=== PATIENT | female | born 1965 | race Caucasian/White ===

== ENCOUNTER 2020-03-06 21:08 | Emergency (ER) | payer BC ==
[2020-03-06] MEDS ORDERED: SODIUM CHLORIDE 0.9% 500 ML 500 ML IV STA (21:51)
--- NOTE | 2020-03-06 22:07 | ED ---
General Adult HPI - General Source: patient, RN notes reviewed Mode of arrival: ambulatory Limitations: no limitations <Diony Kendall - Last Filed: 03/06/20 23:04> <Gisela Hedrick - Last Filed: 03/07/20 15:43> - General Chief complaint: Urogenital Stated complaint: Blood in Urine Time Seen by Provider: 03/06/20 21:37 - History of Present Illness Initial comments: 54-year-old female with a past medical history of osteopenia % the emergency department for "blood in urine." Patient reports that today she started to have some slight blood in her urine. States it was at first tinged pink. States now she has passed some clots. She denies difficulty urinating. She notices some mild cramping abdominal pain but denies any back pain or severe abdominal pain. Patient does admit to some mild burning with urination.Patient has no other complaints at this time including shortness of breath, chest pain, nausea or vomiting, headache, or visual changes. (Diony Kendall) - Related Data Home Medications Medication Instructions Recorded Confirmed Cholecalciferol [Vitamin D3 (25 3,000 unit PO DAILY 03/06/20 03/06/20 Mcg = 1000 Iu)] Citrical 2 tab PO DAILY 03/06/20 03/06/20 Collagen Powder 1 scoop PO DAILY 03/06/20 03/06/20 Hydrochlorothiazide 12.5 mg PO DAILY 03/06/20 03/06/20 [hydroCHLOROthiazide] Magnesium(Unknown Dose) 1 tab PO DAILY 03/06/20 03/06/20 Multivit-Min/FA/Lycopen/Lutein 1 tab PO DAILY 03/06/20 03/06/20 [Centrum Silver Tablet] Omeprazole 20 mg PO DAILY 03/06/20 03/06/20 Potassium Chloride 10 meq PO BID 03/06/20 03/06/20 Turmeric(Unknown Dose) 1 tab PO DAILY 03/06/20 03/06/20 Previous Rx's Medication Instructions Recorded Cephalexin [Keflex] 500 mg PO Q6HR 10 Days #40 cap 03/06/20 Allergies Allergy/AdvReac Type Severity Reaction Status Date / Time No Known Allergies Allergy Verified 03/06/20 22:39 Review of Systems ROS Other: All systems not noted in ROS Statement are negative. <Diony Kendall P - Last Filed: 03/06/20 23:04> ROS Other: All systems not noted in ROS Statement are negative. <Gisela Hedrick Nadia - Last Filed: 03/07/20 15:43> ROS Statement: Those systems with pertinent positive or pertinent negative responses have been documented in the HPI. Past Medical History Additional Past Medical History / Comment(s): Osteopena History of Any Multi-Drug Resistant Organisms: None Reported Past Surgical History: Orthopedic Surgery Smoking Status: Never smoker Past Alcohol Use History: None Reported Past Drug Use History: None Reported <Diony Kendall - Last Filed: 03/06/20 23:04> General Exam Limitations: no limitations General appearance: alert, in no apparent distress Head exam: Present: atraumatic, normocephalic, normal inspection Eye exam: Present: normal appearance, PERRL, EOMI. Absent: scleral icterus, conjunctival injection, periorbital swelling ENT exam: Present: normal exam, mucous membranes moist Neck exam: Present: normal inspection, full ROM. Absent: tenderness, meningismus, lymphadenopathy Respiratory exam: Present: normal lung sounds bilaterally. Absent: respiratory distress, wheezes, rales, rhonchi, stridor Cardiovascular Exam: Present: regular rate, normal rhythm, normal heart sounds. Absent: bradycardia, tachycardia, irregular rhythm GI/Abdominal exam: Present: soft, normal bowel sounds. Absent: distended, tenderness, guarding, rebound, rigid External exam: Present: normal external exam. Absent: erythema, swelling, lesions, lacerations, ecchymosis Back exam: Absent: CVA tenderness (R), CVA tenderness (L) <Diony Kendall - Last Filed: 03/06/20 23:04> Course Vital Signs 03/06/20 03/06/20 03/06/20 21:20 22:08 23:21 Temperature 98.6 F 98.4 F Pulse Rate 100 89 79 Respiratory 18 14 16 Rate Blood Pressure 173/97 153/82 137/80 O2 Sat by Pulse 100 98 97 Oximetry Medical Decision Making - Lab Data Result diagrams: 03/06/20 21:59 03/06/20 21:59 <Diony Kendall P - Last Filed: 03/06/20 23:04> - Lab Data Result diagrams: 03/06/20 21:59 03/06/20 21:59 <Gisela Herdick - Last Filed: 03/07/20 15:43> - Medical Decision Making HPI and physical exam as document. Vitals are stable. No abdominal or CVA tenderness. CBC does show mild acidosis with a left shift. CMP does show e vidence of dehydration, patient was given fluids. Urinalysis shows evidence of infection with 182 red and white blood cells. Many bacteria. Patient will be treated with Rocephin pending culture. She will follow-up with her doctor who is out of town. Patient is going back home to [place] tomorrow. She'll return here for any worsening symptoms overnight including difficulty urinating. (Diony Kendall) I was available for consultation in the emergency department. The history and physical exam were done by the midlevel provider. I was consulted for this patients care. I reviewed the case with the midlevel provider and based on their presentation of the patient, I agree with the assessment, medical decision making and plan of care as documented. Chart was dictated using Gauzy dictation software. Attempts were made to correct any dictation errors however some typographical errors may persist. Patient was seen during a national state of emergency due to the Covid-19 pandemic. (Gisela Hedrick) - Lab Data Lab Results 03/06/20 03/06/20 03/06/20 Range/Units 21:59 21:59 21:59 WBC 13.0 H (3.8-10.6) k/uL RBC 3.94 (3.80-5.40) m/uL Hgb 12.4 (11.4-16.0) gm/dL Hct 36.5 (34.0-46.0) % MCV 92.6 (80.0-100.0) fL MCH 31.5 (25.0-35.0) pg MCHC 34.0 (31.0-37.0) g/dL RDW 12.6 (11.5-15.5) % Plt Count 263 (150-450) k/uL Neutrophils % 79 % Lymphocytes % 13 % Monocytes % 5 % Eosinophils % 1 % Basophils % 1 % Neutrophils # 10.3 H (1.3-7.7) k/uL Lymphocytes # 1.7 (1.0-4.8) k/uL Monocytes # 0.6 (0-1.0) k/uL Eosinophils # 0.2 (0-0.7) k/uL Basophils # 0.1 (0-0.2) k/uL Sodium 136 L (137-145) mmol/L Potassium 3.7 (3.5-5.1) mmol/L Chloride 102 (98-107) mmol/L Carbon Dioxide 27 (22-30) mmol/L Anion Gap 7 mmol/L BUN 22 H (7-17) mg/dL Creatinine 0.79 (0.52-1.04) mg/dL Est GFR (CKD-EPI)AfAm >90 (>60 ml/min/1.73 sqM) Est GFR (CKD-EPI)NonAf 85 (>60 ml/min/1.73 sqM) Glucose 110 H (74-99) mg/dL Calcium 9.7 (8.4-10.2) mg/dL Total Bilirubin 0.4 (0.2-1.3) mg/dL AST 28 (14-36) U/L ALT 21 (4-34) U/L Alkaline Phosphatase 74 (38-126) U/L Total Protein 7.1 (6.3-8.2) g/dL Albumin 4.5 (3.5-5.0) g/dL Urine Color Red Urine Appearance Bloody H (Clear) Urine RBC >182 H (0-5) /hpf Urine WBC >182 H (0-5) /hpf Urine Bacteria Many H (None) /hpf Disposition Is patient prescribed a controlled substance at d/c from ED?: No Time of Disposition: 23:06 <Diony Kendall P - Last Filed: 03/06/20 23:04> <Gisela Hedrick - Last Filed: 03/07/20 15:43> Clinical Impression: Hematuria, Urinary tract infection Disposition: HOME SELF-CARE Condition: Good Instructions (If sedation given, give patient instructions): Urinary Tract Infection in Women (ED) Additional Instructions: Please take antibiotic as directed. Follow-up with your doctor to ensure that hematuria resolves. If you get worsening symptoms such as fevers, upper back pain, or have difficulty urinating return to the emergency room. Prescriptions: Cephalexin [Keflex] 500 mg PO Q6HR 10 Days #40 cap Referrals: Nonstaff,Physician [Primary Care Provider] - 1-2 days
[2020-03-06 22:18] LABS: Basophils # (A) 0.1 k/uL (0-0.2); Basophils % (A) 1 %; Eosinophils # (A) 0.2 k/uL (0-0.7); Eosinophils % (A) 1 %; HCT 36.5 % (34.0-46.0); HGB 12.4 gm/dL (11.4-16.0); Lymphocytes # (A) 1.7 k/uL (1.0-4.8); Lymphocytes % (A) 13 %; MCH 31.5 pg (25.0-35.0); MCV 92.6 fL (80.0-100.0); Mean Platelet Volume 7.6; Monocytes # (A) 0.6 k/uL (0-1.0); Monocytes % (A) 5 %; Neutrophils # (A) 10.3 k/uL (1.3-7.7); Neutrophils % (A) 79 %; Platelet Count 263 k/uL (150-450); RBC 3.94 m/uL (3.80-5.40); RDW 12.6 % (11.5-15.5)
[2020-03-06 22:29] LABS: ALT 21 U/L (4-34); AST 28 U/L (14-36); African American GFR (CKD) >90 (>60 ml/min/1.73 sqM); Albumin 4.5 g/dL (3.5-5.0); Alkaline Phosphatase 74 U/L (38-126); Anion Gap 7 mmol/L; Blood Urea Nitrogen 22 mg/dL (7-17); Calcium 9.7 mg/dL (8.4-10.2); Carbon Dioxide 27 mmol/L (22-30); Chloride 102 mmol/L (98-107); Glucose 110 mg/dL (74-99); Non-African American GFR(CKD) 85 (>60 ml/min/1.73 sqM); Potassium 3.7 mmol/L (3.5-5.1); Sodium 136 mmol/L (137-145); Total Bilirubin 0.4 mg/dL (0.2-1.3); Total Protein 7.1 g/dL (6.3-8.2)
[2020-03-06 22:33] LABS: Appearance,Urine Bloody (Clear); Bacteria,Urine Many /hpf
[2020-03-06 22:34] LABS: Color,Urine Red; RBC,Urine >182 /hpf (0-5); WBC,Urine >182 /hpf (0-5)
[2020-03-06] MEDS ORDERED: cefTRIAXone IN SWFI 1,000 MG/10 ML SYRINGE IVP STA (23:04)
[2020-03-06] MEDS ORDERED: CEPHALEXIN 500MG STARTER PACK 4 CAP BTL PO STA (23:04)
[2020-03-06 23:22] VITALS: BP 137/80; PULSE 79; RESP 16; TEMP 98.4
== END 2020-03-06 23:28 | disposition home or self-care (01) ==
LOC: EC 21:08
DX: N39.0 Urinary tract infection, site not specified (principal); E86.0 Dehydration; E87.2 Acidosis; Z79.899 Other long term (current) drug therapy
CPT/HCPCS: 36415; 80053; 85025; 81001; 87086; 99283; 96374; J0696